=== PATIENT | male | born 1985 | race Caucasian/White ===

== ENCOUNTER 2019-08-15 12:13 | Emergency (ER) | payer SELFPAY ==
[2019-08-15] MEDS ORDERED: Sodium Chloride 0.9% 10 ML Syringe FLUSH PRN (12:40)
[2019-08-15] MEDS ORDERED: Sodium Chloride 0.9% 1,000 ML IV SCH (12:45)
--- NOTE | 2019-08-15 12:52 | EDM.PDOC ---
ED HPI GENERAL MEDICAL PROBLEM - General Chief Complaint: Genitourinary Problem Stated Complaint: BLOOD IN URINE/FLANK PAIN Time Seen by Provider: 08/15/19 12:34 Source of Information: Reports: Patient History Limitations: Reports: No Limitations - History of Present Illness INITIAL COMMENTS - FREE TEXT/NARRATIVE: Patient is a 33-year-old male who presents with complaints of right-sided flank pain for the last 4 days as well as blood in his urine that started yesterday. Pain radiates into his right lower abdomen. He has a history of recurrent kidney stones with his last episode being in 2007. At that time he had lithotripsy done. He denies any burning with urination. Has no chronic kidney disease. He has increased his oral fluid intake over the last couple days, however he does not feel that he is voiding the amount that he is taking in. Patient is a recovering IV drug user does not want to receive pain medications. He did request if we could complete a hepatitis panel on him as well due to his history of IV drug use. He denies any nausea, vomiting, or diarrhea associated with these symptoms. Right Abdomen Pain Score (Numeric/FACES): 9 - Related Data Allergies Allergy/AdvReac Type Severity Reaction Status Date / Time No Known Allergies Allergy Verified 08/15/19 12:28 Home Meds: Home Meds Ibuprofen 800 mg PO Q6H PRN #20 tablet 08/15/19 [Rx] Tamsulosin [Tamsulosin 24 Hr] 0.4 mg PO DAILY #14 cap.er 08/15/19 [Rx] Past Medical History HEENT History: Reports: None Cardiovascular History: Reports: None Respiratory History: Reports: None Gastrointestinal History: Reports: None Genitourinary History: Reports: None Musculoskeletal History: Reports: None Neurological History: Reports: None Psychiatric History: Reports: Addiction Endocrine/Metabolic History: Reports: None Hematologic History: Reports: None Immunologic History: Reports: None Oncologic (Cancer) History: Reports: None Dermatologic History: Reports: None - Infectious Disease History Infectious Disease History: Reports: None - Past Surgical History Head Surgeries/Procedures: Reports: None HEENT Surgical History: Reports: None Cardiovascular Surgical History: Reports: None Respiratory Surgical History: Reports: None GI Surgical History: Reports: None Male Surgical History: Reports: None Endocrine Surgical History: Reports: None Neurological Surgical History: Reports: None Musculoskeletal Surgical History: Reports: None Oncologic Surgical History: Reports: None Dermatological Surgical History: Reports: None Social & Family History - Family History Family Medical History: Noncontributory - Tobacco Use Smoking Status *Q: Light Tobacco Smoker Years of Tobacco use: 10 Packs/Tins Daily: 0.1 - Caffeine Use Caffeine Use: Reports: None - Recreational Drug Use Recreational Drug Use: Yes Drug Use in Last 12 Months: Yes Recreational Drug Type: Reports: Heroin, Marijuana/Hashish, Methamphetamine Recreational Drug Last Use: 1 month ago ED ROS GENERAL - Review of Systems Review Of Systems: See Below Constitutional: Reports: Diaphoresis. Denies: Fever, Chills, Weakness, Fatigue , Weight Loss HEENT: Reports: No Symptoms Respiratory: Reports: No Symptoms Cardiovascular: Reports: No Symptoms Endocrine: Reports: No Symptoms GI/Abdominal: Denies: Diarrhea, Nausea, Vomiting : Reports: Flank Pain (Radiates to right lower abdomen), Hematuria. Denies: Dysuria, Frequency, Incontinence Musculoskeletal: Reports: No Symptoms Skin: Reports: No Symptoms Neurological: Reports: No Symptoms. Denies: Confusion, Dizziness, Headache Psychiatric: Reports: No Symptoms Hematologic/Lymphatic: Reports: No Symptoms Immunologic: Reports: No Symptoms ED EXAM, RENAL/ - Physical Exam Exam: See Below Exam Limited By: No Limitations General Appearance: Alert, WD/WN, No Apparent Distress Respiratory/Chest: No Respiratory Distress, Lungs Clear, Normal Breath Sounds, No Accessory Muscle Use, Chest Non-Tender Cardiovascular: Normal Peripheral Pulses, Regular Rate, Rhythm, No Edema, No Gallop, No JVD, No Murmur, No Rub GI/Abdominal: Normal Bowel Sounds, Soft, Non-Tender, No Organomegaly, No Distention, No Abnormal Bruit, No Mass Back Exam: Normal Inspection, Full Range of Motion. No: CVA Tenderness (L), CVA Tenderness (R) Neurological: Alert, Oriented, CN II-XII Intact, Normal Cognition, Normal Gait, Normal Reflexes, No Motor/Sensory Deficits Psychiatric: Normal Affect, Normal Mood Skin Exam: Warm, Dry, Intact, Normal Color, No Rash Course - Vital Signs Last Recorded V/S: Last Vital Signs Temp 97.8 F 08/15/19 16:05 Pulse 93 08/15/19 16:05 Resp 16 08/15/19 16:05 BP 134/86 08/15/19 16:05 Pulse Ox 98 08/15/19 16:05 - Orders/Labs/Meds Orders: Active Orders 24 hr Category Date Time Status Peripheral IV Care [RC] . DIRECTED Care 08/15/19 12:40 Active Strain Urine [RC] ASDIRECTED Care 08/15/19 15:45 Active HEPATITIS PANEL (4) [REF] Routine Lab 08/15/19 12:55 Received Peripheral IV Insertion Adult [OM.PC] Stat Oth 08/15/19 12:40 Ordered Labs: Laboratory Tests 08/15/19 08/15/19 08/15/19 Range/Units 12:40 12:55 12:55 WBC 6.87 (4.23-9.07) K/mm3 RBC 5.41 (4.63-6.08) M/mm3 Hgb 15.3 (13.7-17.5) gm/dl Hct 45.0 (40.1-51.0) % MCV 83.2 (79.0-92.2) fl MCH 28.3 (25.7-32.2) pg MCHC 34.0 (32.2-35.5) g/dl RDW Std Deviation 48.0 H (35.1-43.9) fL Plt Count 236 (163-337) K/mm3 MPV 11.0 (9.4-12.3) fl Neut % (Auto) 53.5 (34.0-67.9) % Lymph % (Auto) 32.2 (21.8-53.1) % [place] % (Auto) 10.0 (5.3-12.2) % Eos % (Auto) 3.6 (0.8-7.0) Baso % (Auto) 0.6 (0.1-1.2) % Neut # (Auto) 3.67 (1.78-5.38) K/mm3 Lymph # (Auto) 2.21 (1.32-3.57) K/mm3 [place] # (Auto) 0.69 (0.30-0.82) K/mm3 Eos # (Auto) 0.25 (0.04-0.54) K/mm3 Baso # (Auto) 0.04 (0.01-0.08) K/mm3 Manual Slide Review Not Reportable Sodium 142 (136-145) mEq/L Potassium 3.7 (3.5-5.1) mEq/L Chloride 105 (98-107) mEq/L Carbon Dioxide 25 (21-32) mEq/L Anion Gap 15.7 H (5-15) BUN 13 (7-18) mg/dL Creatinine 0.9 (0.7-1.3) mg/dL Est Cr Clr Drug Dosing 110.17 mL/min Estimated GFR (MDRD) > 60 (>60) mL/min BUN/Creatinine Ratio 14.4 (14-18) Glucose 111 H (74-106) mg/dL Calcium 9.2 (8.5-10.1) mg/dL Total Bilirubin 0.4 (0.2-1.0) mg/dL AST 175 H (15-37) U/L ALT 480 H (16-63) U/L Alkaline Phosphatase 76 (46-116) U/L C-Reactive Protein < 0.2 (<1.0) mg/dL Total Protein 7.5 (6.4-8.2) g/dl Albumin 3.6 (3.4-5.0) g/dl Globulin 3.9 gm/dL Albumin/Globulin Ratio 0.9 L (1-2) Urine Color [place] H (Yellow) Urine Appearance Cloudy H (Clear) Urine pH 6.5 (5.0-8.0) Ur Specific [place] 1.020 (1.005-1.030) Urine Protein 1+ H (Negative) Urine Glucose (UA) Negative (Negative) Urine Ketones Negative (Negative) Urine Occult Blood 3+ H (Negative) Urine Nitrite Negative (Negative) Urine Bilirubin Negative (Negative) Urine Urobilinogen 0.2 (0.2-1.0) Ur Leukocyte Esterase Negative (Negative) Urine RBC Too numerous to cnt H (0-5) /hpf Urine WBC 0-5 (0-5) /hpf Ur Epithelial Cells 0-5 (0-5) /hpf Urine Bacteria Few (FEW) /hpf Urine Mucus Moderate H (FEW) /hpf Meds: Medications Discontinued Medications Generic Name Dose Route Start Last Admin Trade Name Freq PRN Reason Stop Dose Admin Sodium Chloride 1,000 mls @ 999 mls/hr 08/15/19 12:45 08/15/19 13:05 Normal Saline IV 999 mls/hr ASDIRECTED KRISTINE Administration Sodium Chloride 10 ml 08/15/19 12:40 08/15/19 13:10 Saline Flush FLUSH 10 ml ASDIRECTED PRN Administration Keep Vein Open - Re-Assessments/Exams Free Text/Narrative Re-Assessment/Exam: 08/15/19 15:35 Hematology was significant for an anion gap elevated at 15.7, AST 175, ALT 480. Urine was positive for 3+ occult blood and RBCs too numerous to count. CT of the abdomen pelvis did show a right-sided hydronephrosis with a 5 mm obstructing stone within the mid to distal right ureter. Discussed these findings with the patient. We will send him home with a prescription for Flomax as well as ibuprofen. He will provided a urine strainer. The hepatitis panel is a send out test so results would not be available for a few days. He will call over to schedule an appointment in the medical office building for a follow-up with a primary care provider and to establish care. Discharge instructions as documented. Departure - Departure Time of Disposition: 15:35 Disposition: Home, Self-Care 01 Condition: Fair Clinical Impression: Elevated liver enzymes, Kidney stone on right side - Discharge Information *PRESCRIPTION DRUG MONITORING PROGRAM REVIEWED*: No *COPY OF PRESCRIPTION DRUG MONITORING REPORT IN PATIENT GUERO: No Prescriptions: Ibuprofen 800 mg PO Q6H PRN #20 tablet PRN Reason: Pain Tamsulosin [Tamsulosin 24 Hr] 0.4 mg PO DAILY #14 cap.er Instructions: Liver Function Tests, Kidney Stones, [id number] Referrals: PCP,None [Primary Care Provider] - Forms: ED Department Discharge Additional Instructions: You were seen in the emergency department today for left-sided flank pain as well as blood in your urine. Urinalysis was positive for blood as expected. CT of the abdomen did show a 5 mm obstructing kidney stone in the mid to distal right ureter. It is possible that you may be able to pass the stone, however if you continue to have symptoms after a week, a referral to urology may be required. You have been provided with a urine strainer. Strain your urine each time you go to see if the stone passes. A prescription for Flomax and ibuprofen has been sent to [facility] [place]. Take these medications as prescribed. With regard to your elevated liver enzymes and pending hepatitis panel, I recommend that you call to schedule an appointment with 1 of the providers in our medical office clinic. The number to schedule with them is [phone]. If you experience any new or worsening symptoms of concern, please do not hesitate to return to the emergency department. Sepsis Event Note - Evaluation Sepsis Screening Result: No Definite Risk - Focused Exam Vital Signs: Vital Signs Temp Pulse Resp BP Pulse Ox 08/15/19 16:05 97.8 F 93 16 134/86 98 08/15/19 12:25 97.6 F 106 H 16 140/81 100 Date Exam was Performed: 08/15/19 Time Exam was Performed: 19:43 - My Orders Last 24 Hours: My Active Orders 08/15/19 12:40 Peripheral IV Care [RC] . DIRECTED Peripheral IV Insertion Adult [OM.PC] Stat 08/15/19 12:55 HEPATITIS PANEL (4) [REF] Routine 08/15/19 15:45 Strain Urine [RC] ASDIRECTED - Assessment/Plan Last 24 Hours: My Active Orders 08/15/19 12:40 Peripheral IV Care [RC] . DIRECTED Peripheral IV Insertion Adult [OM.PC] Stat 08/15/19 12:55 HEPATITIS PANEL (4) [REF] Routine 08/15/19 15:45 Strain Urine [RC] ASDIRECTED
--- NOTE | 2019-08-15 13:35 | CT ---
CT abdomen and pelvis Comparison: No prior abdominal imaging is available. Technique: Multiple axial sections were obtained from above the dome of the diaphragm inferiorly through the pubic symphysis. Intravenous and oral contrast not utilized. Study has been performed as a ureteral stone protocol. Findings: Dilated right renal pelvis and right ureter are seen. Findings are due to an obstructing 5.5 mm stone within the mid to distal right ureter. This stone located approximately 3.5 cm proximal from the UVJ. Several nonobstructing calculi are seen within the left kidney. A low-density cyst noted within the mid right kidney measuring 2.5 cm. Other findings: Visualized lung bases show nothing acute. Spleen shows a small low density lesion anteriorly believed to be incidental. Liver contains no focal parenchymal abnormality. Adrenal glands show no nodule. Pancreas shows no discrete abnormality. Gallbladder contains no calcified gallstones. Aorta shows no aneurysm. No retroperitoneal adenopathy is seen. Appendix is seen which is normal in size. No pelvic mass or adenopathy is seen. No free fluid or inflammatory change is appreciated. Bone window settings were reviewed which appear within normal limits for the patient's age. Impression: 1. Right-sided hydronephrosis due to an obstructing 5.5 mm stone within the mid to distal right ureter as noted above. 2. Nonobstructing calculi seen with the left kidney. 3. Other findings believed to be incidental as noted above. Diagnostic code #3 This report was dictated in [place] Standard Time
== END 2019-08-15 16:05 | disposition home or self-care (01) ==
LOC: JD.ED 12:13
DX: N13.2 Hydronephrosis with renal and ureteral calculous obstruction (principal); R74.8 Abnormal levels of other serum enzymes; F17.210 Nicotine dependence, cigarettes, uncomplicated
CPT/HCPCS: 36415; 74176; 80053; 80074; 81001; 85025; 86140; 96360; 99284; J7030

== ENCOUNTER 2022-09-04 07:20 | Emergency (ER) | payer OTHER ==
[2022-09-04] MEDS ORDERED: Fluorescein 1 MG Ophth Strip EYERT STA (07:44)
[2022-09-04] MEDS ORDERED: Proparacaine 0.5% Ophth Soln 15 ML Bottle EYERT STA (07:44)
[2022-09-04] MEDS ORDERED: Erythromycin Base 0.5% Ophth Oint 1 GM Tube EYERT STA (08:00)
== END 2022-09-04 08:20 | disposition home or self-care (01) ==
LOC: JD.ED 07:20
DX: S05.01XA Injury of conjunctiva and corneal abrasion without foreign body, right eye, initial encounter (principal); Z72.0 Tobacco use
CPT/HCPCS: 99283; A9270; J3490

== ENCOUNTER 2023-03-25 15:03 | Emergency (ER) | payer MEDICAID ==
[2023-03-25 16:54] LABS: BASOPHILS ABSOLUTE AUTO 0.1 K/mm3 (0.0-0.2); BASOPHILS PERCENT AUTO 0.8 % (0.0-1.0); EOSINOPHILS PERCENT AUTO 0.3 % (0.0-6.0); HEMATOCRIT 49.8 % (42.0-52.0); HEMOGLOBIN 17.8 gm/dl (14.0-18.0); IMMATURE GRAN ABSOLUTE AUTO 0.02 K/mm3 (0.00-0.05); IMMATURE GRAN PERCENT AUTO 0.2 % (0.0-0.4); LYMPHOCYTES ABSOLUTE AUTO 2.3 K/mm3 (1.0-4.8); LYMPHOCYTES PERCENT AUTO 20.6 % (24.0-44.0); MEAN CORPUSCULAR HGB CONC 35.7 g/dl (32.0-36.0); MEAN CORPUSCULAR VOLUME 86.8 fl (83.0-99.0); MEAN PLATELET VOLUME 11.1 fl (9.4-12.4); MONOCYTES ABSOLUTE AUTO 0.7 K/mm3 (0.0-0.8); NEUTROPHILS ABSOLUTE AUTO 8.1 K/mm3 (1.8-7.7); NEUTROPHILS PERCENT AUTO 72.1 % (41.0-71.0); PLATELET COUNT,PLT 245 K/mm3 (150-400); RED BLOOD CELL COUNT 5.74 M/mm3 (4.52-5.90); WHITE BLOOD CELL COUNT,WBC 11.28 K/mm3 (3.9-11.3)
[2023-03-25 17:21] LABS: A/G RATIO 1.3 (1-2); ALBUMIN 4.6 g/dl (3.4-5.0); ANION GAP 15.5 (5-15); BILIRUBIN TOTAL 0.9 mg/dL (0.2-1.0); BUN/CREATININE RATIO 10.9 (14-18); CALCIUM 9.7 mg/dL (8.5-10.1); CREATININE 1.1 mg/dL (0.7-1.3); EST CRCL DRUG DOSING (CG) 86.8 mL/min; POTASSIUM,K 4.5 mEq/L (3.5-5.1); PROTEIN TOTAL,TP 8.1 g/dl (6.4-8.2); TSH 1.422 uIU/mL (0.358-3.74)
[2023-03-25 17:27] LABS: BARBITURATE SCREEN,URINE NEGATIVE (CUTOFF=200); BENZODIAZEPINES SCREEN,URINE PRESUMPTIVE POSITIVE (CUTOFF=150); BUPRENORPHINE SCREEN,URINE NEGATIVE (CUTOFF=10); METHADONE SCREEN, URINE NEGATIVE (CUT0FF=200); METHAMPHETAMINES SCREEN, URINE NEGATIVE (CUTOFF=500); OXYCODONE SCREEN,URINE NEGATIVE (CUT0FF=100); PROPOXYPHENE SCREEN,URINE NEGATIVE (CUTOFF=300); THC SCREEN,URINE 20 NG/ML PRESUMPTIVE POSITIVE (CUTOFF=50)
[2023-03-25 17:37] LABS: AMPHETAMINES SCREEN, URINE NEGATIVE (CUTOFF=500)
[2023-03-25] MEDS ORDERED: hydrOXYzine HCl 50 MG Tab PO ONE (17:40)
[2023-03-25] MEDS ORDERED: Haloperidol Lactate 5 MG/ML SDV IM ONE (23:14)
[2023-03-26] MEDS ORDERED: LORazepam 2 MG/ML SDV IM ONE (02:44)
== END 2023-03-26 03:30 ==
LOC: JD.ED 15:03
DX: R45.851 Suicidal ideations (principal); F32.9 Major depressive disorder, single episode, unspecified; Z20.822 Contact with and (suspected) exposure to COVID-19; Z86.16 Personal history of COVID-19
CPT/HCPCS: 36415; 80053; 80143; 80179; 80306; 80307; 84443; 85025; 87635; 93005; 96372; 99285; A9270; J1630; J2060; 93010; U0002

== ENCOUNTER 2024-06-18 19:18 | Emergency (ER) | payer MEDICAID, OTHER ==
[2024-06-18] MEDS: Fluorescein 1 MG Ophth Strip EYELF ONE (20:10)
[2024-06-18] MEDS: Proparacaine 0.5% Ophth Soln 15 ML Bottle EYELF STA (20:10)
[2024-06-18] MEDS: Ofloxacin 0.3% Ophth Soln 5 ML Bottle EYELF ONE (20:10)
== END 2024-06-18 20:11 | disposition home or self-care (01) ==
LOC: JD.ED 19:18
DX: S05.02XA Injury of conjunctiva and corneal abrasion without foreign body, left eye, initial encounter (principal); Z86.16 Personal history of COVID-19; X58.XXXA Exposure to other specified factors, initial encounter
CPT/HCPCS: 65220; 99283-25; A9270-GY

== ENCOUNTER 2024-09-19 19:43 | Emergency (ER) | payer MEDICAID, OTHER ==
[2024-09-19] MEDS ORDERED: Sodium Chloride 0.9% 10 ML Syringe FLUSH PRN (19:53)
[2024-09-19 20:06] LABS: APPEARANCE,URINE CLEAR (Clear); BILIRUBIN,URINE NEGATIVE (Negative); COLOR,URINE LIGHT YELLOW (Yellow); GLUCOSE,URINE NEGATIVE (Negative); KETONES,URINE NEGATIVE (Negative); LEUKOCYTE ESTERASE,URINE NEGATIVE (Negative); NITRITE,URINE NEGATIVE (Negative); OCCULT BLOOD,URINE NEGATIVE (Negative); PH,URINE 6.5 (5.0-8.0); PROTEIN,URINE NEGATIVE (Negative); UROBILINOGEN,URINE 0.2 (0.2-1.0)
[2024-09-19] MEDS: LORazepam 2 MG/ML SDV ONE (20:07)
[2024-09-19] MEDS: LORazepam 2 MG/ML SDV IM ONE (20:07)
[2024-09-19] MEDS: OLANZapine 10 MG Vial IM ONE ×2 (20:08→22:08)
[2024-09-19] MEDS: OLANZapine 10 MG Vial ONE (20:09)
[2024-09-19 20:12] LABS: BASOPHILS ABSOLUTE AUTO 0.1 K/mm3 (0.0-0.2); BASOPHILS PERCENT AUTO 0.5 % (0.0-1.0); EOSINOPHILS ABSOLUTE AUTO 0.1 K/mm3 (0.0-0.4); EOSINOPHILS PERCENT AUTO 0.5 % (0.0-6.0); HEMOGLOBIN 17.9 gm/dl (14.0-18.0); IMMATURE GRAN ABSOLUTE AUTO 0.04 K/mm3 (0.00-0.05); IMMATURE GRAN PERCENT AUTO 0.3 % (0.0-0.4); LYMPHOCYTES PERCENT AUTO 37.6 % (24.0-44.0); MEAN CORPUSCULAR HEMOGLOBIN 30.2 pg (28.0-32.0); MEAN CORPUSCULAR HGB CONC 35.1 g/dl (32.0-36.0); MEAN CORPUSCULAR VOLUME 86.1 fl (83.0-99.0); MEAN PLATELET VOLUME 11.4 fl (9.4-12.4); MONOCYTES ABSOLUTE AUTO 0.9 K/mm3 (0.0-0.8); MONOCYTES PERCENT AUTO 6.5 % (0.0-8.0); NEUTROPHILS ABSOLUTE AUTO 7.2 K/mm3 (1.8-7.7); NEUTROPHILS PERCENT AUTO 54.6 % (41.0-71.0); PLATELET COUNT,PLT 286 K/mm3 (150-400); RED BLOOD CELL COUNT 5.92 M/mm3 (4.52-5.90); WHITE BLOOD CELL COUNT,WBC 13.29 K/mm3 (3.9-11.3)
[2024-09-19 20:12] LABS: BASE EXCESS VENOUS 0.9 (-4.0-2.0); O2 SATURATION VENOUS 66.6
[2024-09-19 20:16] LABS: BARBITURATE SCREEN,URINE NEGATIVE (CUTOFF=200); BENZODIAZEPINES SCREEN,URINE NEGATIVE (CUTOFF=150); BUPRENORPHINE SCREEN,URINE NEGATIVE (CUTOFF=10); METHADONE SCREEN, URINE NEGATIVE (CUT0FF=200); METHAMPHETAMINES SCREEN, URINE NEGATIVE (CUTOFF=500); OXYCODONE SCREEN,URINE NEGATIVE (CUT0FF=100); THC SCREEN,URINE 20 NG/ML NEGATIVE (CUTOFF=50)
[2024-09-19 20:23] LABS: BACTERIA,URINE FEW /hpf (FEW); EPITHELIAL CELLS,URINE 0-5 /hpf (0-5); MUCUS,URINE FEW /hpf (FEW); RBC,URINE 0-5 /hpf (0-5); WBC,URINE 0-5 /hpf (0-5)
[2024-09-19 20:28] LABS: AMPHETAMINES SCREEN, URINE NEGATIVE (CUTOFF=500)
[2024-09-19 20:39] LABS: A/G RATIO 1.3 (1-2); ALBUMIN 4.5 g/dl (3.4-5.0); ANION GAP 15.7 (5-15); BILIRUBIN TOTAL 0.4 mg/dL (0.2-1.0); BUN/CREATININE RATIO 13.6 (14-18); CALCIUM 9.2 mg/dL (8.5-10.1); CREATININE 1.1 mg/dL (0.7-1.3); EST CRCL DRUG DOSING (CG) 91.95 mL/min; ETHANOL BLOOD MEDICAL 0.38 gm% (0.00); POTASSIUM,K 3.7 mEq/L (3.5-5.1); PROTEIN TOTAL,TP 8.1 g/dl (6.4-8.2)
[2024-09-19 20:55] LABS: HEPATITIS C AB REACTIVE (Non-React)
[2024-09-19] MEDS: LORazepam 2 MG/ML SDV IVPUSH ONE (22:08)
[2024-09-20] MEDS ORDERED: Dextrose 5% in Water 1,000 ML IV SCH (01:00)
[2024-09-20] MEDS: Thiamine 200 MG/2 ML MDV IVPUSH ONE (01:15)
[2024-09-20] MEDS: Dextrose 5% in Water 1,000 ML IV SCH (01:16)
[2024-09-20] MEDS: LORazepam 2 MG/ML SDV ONE (01:17)
[2024-09-20] MEDS: LORazepam 2 MG/ML SDV IVPUSH ONE (01:17)
[2024-09-22 11:46] LABS: HEP B SURFACE AG Negative (Negative)
[2024-09-22 13:47] LABS: HEP B CORE IGG/IGM Negative (Negative)
== END 2024-09-20 04:00 ==
LOC: JD.ED 19:43
DX: Z02.89 Encounter for other administrative examinations (principal); Z86.16 Personal history of COVID-19
CPT/HCPCS: 36415; 80053; 80143; 80179; 80306; 80307; 81001; 82803; 85025; 86704; 86803; 87340; 96372; 96374; 96375; 96376; 99283; 99284-25; J2060; J2359; J3411; J7070